=== PATIENT | male | born 1995 | race Hispanic/Latino ===

== ENCOUNTER 2018-08-06 02:21 | Emergency (ER) | payer SELFPAY ==
[2018-08-06 02:22] VITALS: BMI 23.0
[2018-08-06 02:37] VITALS: BP 137/77; PULSE 100; RESP 18; TEMP 96.9; O2SAT 100
--- NOTE | 2018-08-06 03:03 | ED PDOC ---
HPI: Psych/Substance Abuse Time Seen by Provider: 08/06/18 02:43 Chief Complaint (Nursing): Alcohol Ingestion Chief Complaint (Provider): Alcohol Ingestion History Per: Patient History/Exam Limitations: no limitations Current Symptoms Are (Timing): Better Modifying Factor(s): Alcohol Additional Complaint(s): 23 year old male with no significant pmHx, arrives to ED via EMS and [place] [employer] for an evaluation of alcohol use prior to arrival. Patient was picked then brought to ED after he fell asleep in an [employer] car after having a few drinks earlier tonight. Upon being escorted to exam room, patient is noted with fluent speech and steady gait. Otherwise, he offers no complaints and declines further treatment. PCP: none provided Past Medical History Reviewed: Historical Data, Nursing Documentation, Vital Signs Vital Signs: Last Vital Signs Temp 96.9 F L 08/06/18 02:26 Pulse 100 H 08/06/18 02:26 Resp 18 08/06/18 02:26 BP 137/77 08/06/18 02:26 Pulse Ox 100 08/06/18 02:26 - Medical History PMH: No Chronic Diseases - Surgical History Surgical History: No Surg Hx - Family History Family History: States: Unknown Family Hx - Social History Alcohol: Occasional - Home Medications Home Medications: Ambulatory Orders Medication Instructions Recorded Amoxicillin/Clavulanate Pota 1 tab PO BID #14 tab 07/19/15 [Augmentin 875 mg-125 mg] - Allergies Allergies/Adverse Reactions: Allergies Allergy/AdvReac Type Severity Reaction Status Date / Time No Known Allergies Allergy Verified 07/19/15 12:12 Review of Systems ROS Statement: Except As Marked, All Systems Reviewed And Found Negative Physical Exam - Reviewed Nursing Documentation Reviewed: Yes Vital Signs Reviewed: Yes - Physical Exam Appears: Positive for: Well, Non-toxic, No Acute Distress Head Exam: Positive for: ATRAUMATIC, NORMAL INSPECTION, NORMOCEPHALIC Skin: Positive for: Normal Color Eye Exam: Positive for: Normal appearance, EOMI, PERRL Neck: Positive for: Normal Cardiovascular/Chest: Positive for: Regular Rate, Rhythm Respiratory: Positive for: Normal Breath Sounds. Negative for: Respiratory Distress Extremity: Positive for: Normal ROM (upper/lower) Neurologic/Psych: Positive for: Alert, Oriented (x3), Gait (steady), Other (fluent speech). Negative for: Motor/Sensory Deficits - ECG O2 Sat by Pulse Oximetry: 100 (RA) Pulse Ox Interpretation: Normal Medical Decision Making Medical Decision Making: Initial Impression: 23 year old male with alcohol use. Time: 5 --Upon provider evaluation, patient remains alert and oriented x3 with fluent speech and steady gait. Patient is medically stable for discharge home and requires no further treatment in the ED at this time. Counseling was provided and all questions were answered regarding diagnosis. There is agreement to discharge plan. Return if symptoms persist or worsen. Clinical Impression: Alcohol use Scribe Attestation: Documented by Kassandra Marino, acting as a scribe for Babar Nazario MD. Provider Scribe Attestation: All medical record entries made by the Scribe were at my direction and personally dictated by me. I have reviewed the chart and agree that the record accurately reflects my personal performance of the history, physical exam, medical decision making, and the department course for this patient. I have also personally directed, reviewed, and agree with the discharge instructions and disposition. Disposition - Clinical Impression Clinical Impression: Alcohol use - Patient ED Disposition Is Patient to be Admitted: No Counseled Patient/Family Regarding: Diagnosis - Disposition Disposition: Routine/Home Disposition Time: 02:45 Condition: STABLE Forms: [employer] ([place])
== END 2018-08-06 02:50 | disposition home or self-care (01) ==
LOC: H.ER 02:21
DX: F10.10 Alcohol abuse, uncomplicated (principal)